=== PATIENT | female | born 1930 | race Caucasian/White ===

== ENCOUNTER 2017-07-24 10:13 | Day surgery (SDC) | payer OTHER, MEDICARE ==
[2017-07-24] MEDS ORDERED: FLUMAZENIL 0.5 MG/5 ML MDV IVP ONE (10:30)
[2017-07-24] MEDS ORDERED: fentaNYL 100 MCG/2 ML INJ ONE (10:30)
[2017-07-24] MEDS ORDERED: NALOXONE HCL 0.4 MG/ML INJ ONE (10:30)
[2017-07-24] MEDS ORDERED: MIDAZOLAM 2 MG/2 ML VIAL ONE (10:30)
[2017-07-24] MEDS ORDERED: MEPERIDINE 25 MG/ML SYR IVP PRN (10:35)
[2017-07-24] MEDS ORDERED: HEPARIN 10,000 UNIT/10 ML MDV (1,000 UNIT/ML) IVP PRN (10:35)
[2017-07-24] MEDS ORDERED: NALOXONE HCL 0.4 MG/ML INJ IVP PRN (10:35)
[2017-07-24] MEDS ORDERED: fentaNYL 100 MCG/2 ML INJ IVP PRN (10:35)
[2017-07-24] MEDS ORDERED: ALTEPLASE 2 MG VIAL IVP PRN (10:35)
[2017-07-24] MEDS ORDERED: PROTAMINE SULFATE 50 MG/5 ML VIAL IVP PRN (10:35)
[2017-07-24] MEDS ORDERED: MIDAZOLAM 2 MG/2 ML VIAL IVP PRN (10:35)
[2017-07-24] MEDS ORDERED: GLUCAGON HCL 1 MG VIAL IVP PRN (10:35)
[2017-07-24] MEDS ORDERED: FLUMAZENIL 0.5 MG/5 ML MDV IVP PRN (10:35)
[2017-07-24] MEDS ORDERED: NS 1,000 ML IV SCH (10:45)
[2017-07-24 11:06] LABS: INR 0.91 (0.83-1.16); PROTIME(PATIENT) 12.5 SEC (12.0-15.0)
--- NOTE | 2017-07-24 11:31 | PDRADPRE ---
Radiology History & Physical Indication for procedure: lung nodule/mass, cancer Significant medical history: lung disease Surgical history: Lumpectomy for breast cancer Home medications: Aspirin [Aspirin 81mg (*)] 07/23/17 [Last Taken 07/20/17] Furosemide [Lasix 40 MG (*)] 40 mg PO DAILY 07/23/17 [Last Taken 07/23/17] Allergies/Adverse Reactions: No Known Allergies Allergy (Verified 07/23/17 14:51) Mental status: A&Ox3 Heart exam: regular rate and rhythm Lungs exam: clear to auscultation Mallampati Score: Class 1
--- NOTE | 2017-07-24 11:32 | PDPROPOC ---
Sedation Plan of Care Sedation Plan of Care: vital signs stable, mental status noted, patient educated of risks, benefits, alternatives, patient can tolerate sedation ASA Classification: ASA 2 Planned drugs: fentanyl, midazolam Mallampati Score: Class 1 Mallampati Reference Image: Patient passed 3-3-2 rule?: Yes
[2017-07-24 15:52] VITALS: BP 164/84
--- NOTE | 2017-07-24 16:09 | PDRADPN ---
Radiology Procedure Note Date of Procedure: 07/24/17 Radiologist: John Carbajal Anesthesia: IV Sedation, Local (Specify) (Lidocaine) Inf/Abcess present in the surg proc area at time of surgery?: No Depth: Organ Space (Lingula mass biopsy) EBL: Minimal Complications: None Specimen(s): 20 guage core biopsies x 4
== END 2017-07-24 16:20 | disposition home or self-care (01) ==
LOC: EDBD 10:13 → FIMAGING 10:13
PROVIDERS: ATTEND Internal Medicine Critical Care Medicine
PROC: 0BBH3ZX Excision of Lung Lingula, Percutaneous Approach, Diagnostic (ICD-10-PCS; principal; 2017-07-24)
DX: R91.1 Solitary pulmonary nodule (principal); J44.9 Chronic obstructive pulmonary disease, unspecified; R60.9 Edema, unspecified; I27.20 Pulmonary hypertension, unspecified; F17.210 Nicotine dependence, cigarettes, uncomplicated; I48.91 Unspecified atrial fibrillation; Z79.82 Long term (current) use of aspirin; Z85.3 Personal history of malignant neoplasm of breast
CPT/HCPCS: 88184-90; 88185-91; J2250; J2310; J3010

== ENCOUNTER → 2017-08-12 | Outpatient (CLI) | payer OTHER, MEDICARE ==
[~2017-08-12] MED LIST: GADOBUTROL 10 ML VIAL IVP ONE
== END ==
LOC: FIMAGING 07:08
PROVIDERS: ATTEND Internal Medicine Hematology & Oncology
DX: C50.919 Malignant neoplasm of unspecified site of unspecified female breast (principal); G31.9 Degenerative disease of nervous system, unspecified; R90.82 White matter disease, unspecified
CPT/HCPCS: 70553; A9585

== ENCOUNTER 2018-02-18 16:14 | Emergency (ER) | payer OTHER, MEDICARE ==
[2018-02-18 17:09] LABS: PLATELET COUNT 434 10^3/uL (150-400)
--- NOTE | 2018-02-18 17:11 | EDPHY ---
H & P Stated Complaint: irregular tachycardia Time Seen by Provider: 02/18/18 16:46 HPI/ROS: CHIEF COMPLAINT: Tachycardia after radiation treatment HISTORY OF PRESENT ILLNESS: The patient presents to the ED for evaluation of tachycardia that occurred after receiving radiation treatment earlier today. The patient is currently being treated for metastatic cancer to her lung. The patient reportedly had a heart rate in the 150s. She was not aware that this tachycardia was occurring. The patient denies any acute pleuritic chest pain. She does report fatigue and chronic dyspnea. She is not anticoagulated. She denies any fever, cough or congestion. The patient denies additional acute complaints. REVIEW OF SYSTEMS: A comprehensive 10 point review of systems is otherwise negative aside from elements mentioned in the history of present illness. Source: Patient, Family - Personal History Current Tetanus/Diphtheria Vaccine: Unsure Current Tetanus Diphtheria and Acellular Pertussis (TDAP): Unsure - Medical/Surgical History Hx Asthma: No Hx Chronic Respiratory Disease: Yes Hx Diabetes: No Hx Cardiac Disease: No Hx Renal Disease: No Hx Cirrhosis: No Hx Alcoholism: No Hx HIV/AIDS: No Hx Splenectomy or Spleen Trauma: No Other PMH: Breast CA mets in lung, double mastectomy, - Social History Smoking Status: Heavy smoker - Physical Exam Exam: General Appearance: Alert, no distress Eyes: Pupils equal and round no pallor or injection ENT, Mouth: Mucous membranes moist Respiratory: There are no retractions, lungs are clear to auscultation Cardiovascular: Regular rate and rhythm Gastrointestinal: Abdomen is soft and nontender, no masses, bowel sounds normal Neurological: A&O, normal motor function, normal sensory exam, normal cranial nerves Skin: Warm and dry, no rashes Musculoskeletal: Neck is supple nontender Extremities: symmetrical, full range of motion Psychiatric: Patient is oriented X 3, there is no agitation Constitutional: Initial Vital Signs Temperature (C) 37.1 C 02/18/18 16:22 Heart Rate 140 H 02/18/18 16:22 Respiratory Rate 20 02/18/18 16:22 Blood Pressure 138/85 H 02/18/18 16:22 O2 Sat (%) 96 02/18/18 16:22 O2 Delivery Mode Room Air O2 (L/minute) 2 Allergies/Adverse Reactions: No Known Allergies Allergy (Verified 02/18/18 16:21) Home Medications: Medication Instructions Recorded Aspirin 11/08/18 Medical Decision Making - Diagnostics EKG Interpretation: EKG: Complete interpretation has been separately recorded in the [employer] cell [employer] archive. Summary impression: Sinus rhythm, rate 85 Imaging Results: CT pulmonary angiogram: Extensive metastatic disease noted, no evidence of a pulmonary embolism. ED Course/Re-evaluation: The patient presents to the ED for evaluation of tachycardia observed after receiving radiation therapy today. She reportedly had heart rate up in the 150 range. No EKG was performed. She arrives to the emergency department today in a sinus rhythm. The patient does have a history of fairly aggressive metastatic breast cancer. Given the patient's history of metastatic disease, tachycardia and chronic dyspnea she was taken for CT pulmonary angiogram which does demonstrate fairly extensive metastatic disease however demonstrates no evidence of a PE or dissection. The patient was monitored throughout her stay in the emergency department without evidence of an recurrent arrhythmia. At this point time I do feel the patient can be discharged home and follow up with her primary care provider. She is instructed to return to the ED for recurrent palpitations, chest pain, shortness of breath or other concerns. Differential Diagnosis: Differential diagnosis considered includes SVT, atrial fibrillation, pulmonary embolism, dehydration, metabolic derangement - Data Points Laboratory Results: Laboratory Results 02/18/18 16:55 02/18/18 16:55 02/18/18 02/18/18 02/18/18 17:51 16:58 16:55 WBC RBC Hgb POC Hgb 11.2 gm/dL L gm/dL (12.6-16.3) Hct POC Hct 33 % L % (38-47) MCV MCH MCHC RDW Plt Count MPV Neut % (Auto) Lymph % (Auto) Custer % (Auto) Eos % (Auto) Baso % (Auto) Nucleat RBC Rel Count Absolute Neuts (auto) Absolute Lymphs (auto) Absolute Monos (auto) Absolute Eos (auto) Absolute Basos (auto) Absolute Nucleated RBC Immature Gran % Immature Gran # PT INR APTT POC Sodium 133 mEq/L L mEq/L (135-145) Sodium TNP POC Potassium 4.0 mEq/L mEq/L (3.3-5.0) Potassium TNP POC Chloride 95 mEq/L L mEq/L (97-110) Chloride TNP Carbon Dioxide TNP Anion Gap TNP POC BUN 20 mg/dL mg/dL (7-23) BUN TNP Creatinine TNP POC Creatinine 0.5 mg/dL L mg/dL (0.6-1.0) Estimated GFR TNP Glucose TNP POC Glucose 111 mg/dL H mg/dL (70-100) Calcium TNP Total Bilirubin TNP Conjugated Bilirubin TNP Unconjugated Bilirubin TNP AST TNP ALT TNP Alkaline Phosphatase TNP POC Troponin I 0.01 ng/mL ng/mL (0.00-0.08) Total Protein TNP Albumin TNP Lipase TNP 02/18/18 02/18/18 16:55 16:55 WBC 11.49 10^3/uL H 10^3/uL (3.80-9.50) RBC 3.14 10^6/uL L 10^6/uL (4.18-5.33) Hgb 10.1 g/dL L g/dL (12.6-16.3) POC Hgb Hct 30.3 % L % (38.0-47.0) POC Hct MCV 96.5 fL fL (81.5-99.8) MCH 32.2 pg pg (27.9-34.1) MCHC 33.3 g/dL g/dL (32.4-36.7) RDW 16.2 % H % (11.5-15.2) Plt Count 434 10^3/uL H 10^3/uL (150-400) MPV 8.5 fL L fL (8.7-11.7) Neut % (Auto) 73.0 % % (39.3-74.2) Lymph % (Auto) 17.1 % % (15.0-45.0) Custer % (Auto) 7.7 % % (4.5-13.0) Eos % (Auto) 1.1 % % (0.6-7.6) Baso % (Auto) 0.4 % % (0.3-1.7) Nucleat RBC Rel Count 0.0 % % (0.0-0.2) Absolute Neuts (auto) 8.38 10^3/uL H 10^3/uL (1.70-6.50) Absolute Lymphs (auto) 1.96 10^3/uL 10^3/uL (1.00-3.00) Absolute Monos (auto) 0.89 10^3/uL H 10^3/uL (0.30-0.80) Absolute Eos (auto) 0.13 10^3/uL 10^3/uL (0.03-0.40) Absolute Basos (auto) 0.05 10^3/uL 10^3/uL (0.02-0.10) Absolute Nucleated RBC 0.00 10^3/uL 10^3/uL (0-0.01) Immature Gran % 0.7 % % (0.0-1.1) Immature Gran # 0.08 10^3/uL 10^3/uL (0.00-0.10) PT 14.1 SEC SEC (12.0-15.0) INR 1.07 (0.83-1.16) APTT 32.6 SEC SEC (23.0-38.0) POC Sodium Sodium POC Potassium Potassium POC Chloride Chloride Carbon Dioxide Anion Gap POC BUN BUN Creatinine POC Creatinine Estimated GFR Glucose POC Glucose Calcium Total Bilirubin Conjugated Bilirubin Unconjugated Bilirubin AST ALT Alkaline Phosphatase POC Troponin I Total Protein Albumin Lipase Point of Care Test Results: Chemistry 02/18/18 02/18/18 17:51 16:58 POC Sodium 133 mEq/L L mEq/L (135-145) POC Potassium 4.0 mEq/L mEq/L (3.3-5.0) POC Chloride 95 mEq/L L mEq/L (97-110) POC BUN 20 mg/dL mg/dL (7-23) POC Creatinine 0.5 mg/dL L mg/dL (0.6-1.0) POC Glucose 111 mg/dL H mg/dL (70-100) POC Troponin I 0.01 ng/mL ng/mL (0.00-0.08) ISTAT H&H 02/18/18 17:51 POC Hgb 11.2 gm/dL L gm/dL (12.6-16.3) POC Hct 33 % L % (38-47) Departure - Departure Disposition: Home, Routine, Self-Care Clinical Impression: Tachycardia Condition: Good Instructions: Heart Palpitations (ED) Additional Instructions: 1. Return to the ED for any recurrent palpitations, chest pain or acute shortness of breath. 2. Please follow-up with your primary care provider as scheduled. Referrals: MADIHA SAUNDERS [Primary Care Provider] - As per Instructions
[2018-02-18 17:53] LABS: INR 1.07 (0.83-1.16); PROTIME(PATIENT) 14.1 SEC (12.0-15.0)
[2018-02-18] MEDS ORDERED: IOPAMIDOL (ISOVUE 370) 100 ML BTL IV ONE (17:56)
[2018-02-18 18:42] VITALS: BP 135/66
--- NOTE | 2018-02-18 23:01 | CPEKG ---
Test Reason : OPEN Blood Pressure : / mmHG Vent. Rate : 085 BPM Atrial Rate : 086 BPM P-R Int : 140 ms QRS Dur : 087 ms QT Int : 348 ms P-R-T Axes : 053 042 057 degrees QTc Int : 414 ms Sinus rhythm Probable left atrial enlargement Confirmed by Regan Palma ([id number]) on 02/18/2018 11:01:14 PM Referred By: Confirmed By:Regan Palma
== END 2018-02-18 19:01 | disposition home or self-care (01) ==
DX: R00.0 Tachycardia, unspecified (principal); F17.200 Nicotine dependence, unspecified, uncomplicated
CPT/HCPCS: 71275; 93005; 99285; Q9967; 82435-PO; 82565-PO; 82947-PO; 84132-PO; 84295-PO; 84484-PO; 84520-PO; 85014-PO

== ENCOUNTER 2018-03-14 11:58 | Inpatient (IN) | payer OTHER, MEDICARE ==
--- NOTE | 2018-03-14 12:18 | EDPHY ---
H & P Time Seen by Provider: 03/14/18 12:18 HPI/ROS: CHIEF COMPLAINT: Can't eat or drink HISTORY OF PRESENT ILLNESS: History of breast cancer, discharged end of February with dysphagia and a swallow study negative for aspiration. Thought likely due to a mediastinal lymphadenopathy or x-ray therapy. Can swallow anything over the past 2 days. Not liquids or food. She has a chronic cough which is unchanged over at least the last year, is not short of breath, no fever or chest pain. No abdominal pain or vomiting REVIEW OF SYSTEMS: Eye: no change in vision ENT: no sore throat Cardiac: no chest pain or syncope Pulmonary: HPI Abdomen: HPI Musculoskeletal: Bilateral lower extremity edema which is improved, over the past 2 weeks Skin: no rash Neuro: no headache Constitutional: no fever : no urinary symptoms A comprehensive 10 point review of systems is otherwise negative aside from elements mentioned in the history of present illness. PAST MEDICAL HISTORY: Breast cancer, atrial fibrillation, COPD Social history: Here with family, both daughters General Appearance: Alert and conversant, cooperative. Eyes: No scleral icterus. ENT, Mouth: Dry mucous membranes. Respiratory: Normal respiratory effort, breath sounds equal, lungs are clear to auscultation. Speaks in full sentences. Cardiovascular: Regular rate and rhythm. Gastrointestinal: Abdomen is soft and non tender. Neurological: Alert, face symmetric, normal motor and sensory in extremities. Skin: Warm and dry, no rashes. Musculoskeletal: Bilateral 2+ peripheral edema without tenderness. Psychiatric: Not agitated. Emergency Department course/MDM: Discussed with Shay Marshall 1253. Patient will be admitted for dysphasia and clinical dehydration with inability to swallow, will discuss with her oncologist and they can consult regarding options for the patient. 1303: Discussed with Luis Angel, [facility] will consult. The tachycardia noted likely due to dehydration. Noted also to be mildly hypoxemic, although she does have a history of COPD, typically wears oxygen at home, does not have respiratory complaints, her cough is not new. Do not think acute aspiration or pneumonia is likely. Smoking Status: Heavy smoker Constitutional: Initial Vital Signs Temperature (C) 36.9 C 03/14/18 12:10 Heart Rate 125 H 03/14/18 12:10 Respiratory Rate 16 03/14/18 12:10 Blood Pressure 96/83 H 03/14/18 12:10 O2 Sat (%) 85 L 03/14/18 12:10 Allergies/Adverse Reactions: No Known Allergies Allergy (Verified 03/06/18 12:11) Home Medications: Medication Instructions Recorded Metoprolol Tartrate [Lopressor 25 12.5 mg PO BID #60 tab 03/08/18 mg (*)] Herbals/Supplements -Info Only 1 ea PO DAILY 03/14/18 Medical Decision Making Differential Diagnosis: Differential considered including but not limited to esophageal inflammation, mechanical obstruction, reflux, impacted foreign body - Data Points Laboratory Results: Laboratory Results 03/14/18 12:34 03/14/18 12:34 03/14/18 03/14/18 12:34 12:34 WBC 9.88 10^3/uL H 10^3/uL (3.80-9.50) RBC 3.41 10^6/uL L 10^6/uL (4.18-5.33) Hgb 10.6 g/dL L g/dL (12.6-16.3) Hct 31.9 % L % (38.0-47.0) MCV 93.5 fL fL (81.5-99.8) MCH 31.1 pg pg (27.9-34.1) MCHC 33.2 g/dL g/dL (32.4-36.7) RDW 14.6 % % (11.5-15.2) Plt Count 406 10^3/uL H 10^3/uL (150-400) MPV 8.8 fL fL (8.7-11.7) Neut % (Auto) 80.1 % H % (39.3-74.2) Lymph % (Auto) 12.8 % L % (15.0-45.0) Smith % (Auto) 6.3 % % (4.5-13.0) Eos % (Auto) 0.1 % L % (0.6-7.6) Baso % (Auto) 0.4 % % (0.3-1.7) Nucleat RBC Rel Count 0.0 % % (0.0-0.2) Absolute Neuts (auto) 7.92 10^3/uL H 10^3/uL (1.70-6.50) Absolute Lymphs (auto) 1.26 10^3/uL 10^3/uL (1.00-3.00) Absolute Monos (auto) 0.62 10^3/uL 10^3/uL (0.30-0.80) Absolute Eos (auto) 0.01 10^3/uL L 10^3/uL (0.03-0.40) Absolute Basos (auto) 0.04 10^3/uL 10^3/uL (0.02-0.10) Absolute Nucleated RBC 0.00 10^3/uL 10^3/uL (0-0.01) Immature Gran % 0.3 % % (0.0-1.1) Immature Gran # 0.03 10^3/uL 10^3/uL (0.00-0.10) Sodium 133 mEq/L L mEq/L (135-145) Potassium 3.9 mEq/L mEq/L (3.3-5.0) Chloride 97 mEq/L mEq/L (97-110) Carbon Dioxide 27 mEq/l mEq/l (22-31) Anion Gap 9 mEq/L mEq/L (6-14) BUN 13 mg/dL mg/dL (7-23) Creatinine 0.5 mg/dL L mg/dL (0.6-1.0) Estimated GFR > 60 Glucose 99 mg/dL mg/dL (70-100) Calcium 9.0 mg/dL mg/dL (8.5-10.4) Medications Given: Discontinued Medications Sodium Chloride (Ns) 1,000 mls @ 0 mls/hr IV ONCE ONE; Wide Open PRN Reason: Protocol Stop: 03/14/18 12:39 Last Admin: 03/14/18 13:01 Dose: 1,000 mls Departure - Departure Disposition: [facility] Inpatient Acute Clinical Impression: Dehydration Dysphagia Qualifiers: Dysphagia type: unspecified Qualified Code(s): R13.10 - Dysphagia, unspecified Condition: Good
[2018-03-14] MEDS ORDERED: NS 1,000 ML IV ONE (12:38)
[2018-03-14 12:58] LABS: PLATELET COUNT 406 10^3/uL (150-400)
[2018-03-14] MEDS ORDERED: ACETAMINOPHEN 325 MG TAB PO PRN (15:12)
[2018-03-14] MEDS ORDERED: ONDANSETRON 4 MG/2 ML VIAL IVP PRN (15:12)
[2018-03-14] MEDS ORDERED: ONDANSETRON DISINTEGRATING 4 MG TAB PO PRN (15:12)
[2018-03-14] MEDS ORDERED: D5W 1/2 NS 1,000 ML IV SCH (15:15)
[2018-03-14] MEDS ORDERED: NS 1,000 ML IV SCH (15:30)
[2018-03-14] MEDS ORDERED: IOPAMIDOL (ISOVUE-300) 100 ML BTL ONE (16:39)
[2018-03-14] MEDS: IBUPROFEN SUSP 100 MG/5 ML UDCUP PO PRN (18:49)
--- NOTE | 2018-03-14 19:07 | GCON ---
REASON FOR CONSULTATION: Metastatic breast cancer with inability to swallow. HISTORY OF PRESENT ILLNESS: Ca Jarquin is a very pleasant 88-year-old female with history of metastatic breast cancer who is admitted today with increasing difficulty swallowing. The patient's oncology history dates back many years ago when she was diagnosed with bilateral breast cancer, undergoing bilateral mastectomies. She was found to be BRCA1 positive. In the spring, she developed significant mediastinal adenopathy and multiple lung masses. Biopsy was consistent with metastatic breast cancer. ER/NV and HER-2/ vibha were negative. The patient was started on Xeloda in August and continued on Xeloda until February when she was found to have progressive disease. CT scan of the chest in early February showed an increasing size of multiple bilateral lung masses, the largest of which measured 6 x 4.5 cm on the right and on the left 4.4 x 3.5 cm. PET scan showed confluent malignancy in the medial left upper lobe, extending to the upper mediastinum and encasing the left subclavian artery. She underwent a course of mediastinal radiation over a period of 6 weeks and finished that approximately 2 weeks ago. While the patient has been having difficulty swallowing for several months, in the last 3-4 days she has not been able to take anything orally. She was recently in the hospital and discharged approximately 4 days ago. She was admitted for dysphagia. Speech Therapy saw her and there was no evidence of obvious aspiration or Zenker's diverticula. Currently she denies any pain in her throat. She has difficulty with both liquids and solids, but she is able to manage her saliva. She has had no fevers or chills. She denies any increasing shortness of breath. PAST MEDICAL HISTORY: 1. Metastatic breast cancer, triple negative, BRCA1 positive. 2. COPD. 3. History of atrial fibrillation, not anticoagulated. FAMILY HISTORY: BRCA1 mutation in the family. SOCIAL HISTORY: She continues to smoke. She does not drink. She has a supportive family. ALLERGIES: None known. REVIEW OF SYSTEMS: 10-point review of systems is negative other than in HPI. PHYSICAL EXAMINATION: GENERAL: She is an alert, comfortable-appearing, elderly female in no distress. VITALS: Blood pressure 134/60, respirations 18 , O2 sat 86% on room air. HEENT: Pupils are equal. Sclerae anicteric. Oropharynx with questionable thrush on the tongue. No obvious thrush on the mucosal membranes. HEART: Irregular. LUNGS: Clear. ABDOMEN: Soft, nontender. EXTREMITIES: No edema. LABORATORY DATA: White count 9.9, hematocrit 31.9, platelets 406. Basic metabolic panel unremarkable. CT scan of the neck has been performed, but has not been read yet. IMPRESSION: This is an 88-year-old female, BRCA1 carrier, who has a remote history of breast cancer dating back to 1994, diagnosed with locally extensive mediastinal recurrence in the spring. She was initially treated with Xeloda and more recently, due to progressive disease, has undergone a course of radiation to the superior mediastinum. She now presents with inability essentially to swallow solids or liquids. Currently the patient is being hydrated. She has had a neck CT. Further workup will be performed as needed. She may end up needing an EGD. We will contact Speech Pathology to reevaluate swallowing. She does have some white plaques on her tongue. However, I am not convinced this is thrush. With that said, however, given the difficulty with swallowing I would recommend fluconazole. We can give it intravenously for now given her difficulty with pills. We will continue to follow along with you. She will need DVT prophylaxis. /[id number]/MODL MTDD
[2018-03-14] MEDS: METOPROLOL TARTRATE 25 MG TAB PO SCH (21:37)
[2018-03-15] MEDS: METOPROLOL TARTRATE 25 MG TAB PO SCH (09:14)
[2018-03-15] MEDS: ENOXAPARIN 40 MG/0.4 ML SYR SC SCH (09:19)
--- NOTE | 2018-03-15 12:47 | ASMTCMCOM ---
CM Note CM Note Notes: Patient reviewed in am rounds for plan of care. Patient just discharged the end of February with c/o of dysphagia She went home with [facility] through [facility]. She presents to the ED with c/o extreme dysphagia and dehydration. History of breast cancer. Patient is a current smoker. Questionable mass on CT. ENT consulted to attempt direct visualization. CM to follow for needs, Plan: TBD Date Signed: 03/15/2018 12:47 PM Electronically Signed By:Stefania Hector RN
--- NOTE | 2018-03-15 12:58 | HOSPPROG ---
Hospitalist Progress Note Assessment/Plan: 1. Dysphagia - Presenting with difficulty swallowing liquids and solids, acutely worsened over the weekend - Recently admitted for similar complaint, w/u negative, discussed with Speech Therapy this morning who report imaging at that time did not show obstruction - Recent mediastinal radiation - CT Neck performed which showed possible R tongue base mass although obscured by dental hardware, radiology recommended - Consulted ENT this AM for further evaluation and possible scope to evaluate CT findings - Pending ENT consult, consider consulting GI for further evaluation, possible EGD - Started D5 1/2 NS while NPO - Some white oral lesions, will start Fluconazole IV today per oncology recommendations 2. Metastatic Breast Cancer - Oncology consulted and following 3. A Fib - Continue home b-flor Dispo: Pending clinical course Subjective: Patient reports difficulty swallowing saliva this morning Objective: Vital Signs Temp Pulse Resp BP Pulse Ox 36.4 C 66 20 115/55 L 92 03/15/18 12:17 03/15/18 12:17 03/15/18 12:17 03/15/18 12:17 03/15/18 12:17 Laboratory Results 03/15/18 04:46 03/14/18 03/15/18 03/16/18 05:59 05:59 05:59 Intake Total 2039 Balance 2039 - Physical Exam Constitutional: chronically ill appearing Eyes: PERRL Ears, Nose, Mouth, Throat: moist mucous membranes, oral thrush Cardiovascular: regular rate and rhythym Respiratory: no respiratory distress Gastrointestinal: soft, non-tender abdomen Skin: warm Neurologic: AAOx3 Psychiatric: interacting appropriately ICD10 Worksheet Patient Problems: Problems Problem Status Onset Dehydration Acute Dysphagia Acute Constipation Acute Failure to thrive in adult Acute
[2018-03-15] MEDS: IBUPROFEN SUSP 100 MG/5 ML UDCUP PO PRN (13:28)
[2018-03-15] MEDS: D5W 1/2 NS 1,000 ML IV SCH (13:31)
--- NOTE | 2018-03-15 13:38 | GHP ---
DATE OF ADMISSION: 03/14/2018 CHIEF COMPLAINT: Inability to swallow, dehydration. HISTORY OF PRESENT ILLNESS: The patient is a very pleasant 88-year-old with a history significant fo r metastatic breast cancer. She has had issues with swallowing difficulty for several weeks. She wa s recently admitted at the end of February for similar complaints, at which time it was thought she w as constipated, and she had an enema and was doing better at the time of discharge. However, since b eing home for the last 5 days, she has continued to have difficulty swallowing. She primarily compla ins of swallowing issues right at her cricoid area where she feels like food and sputum get stuck rig ht at the base of her throat, and she is unable to pass it down. This is the same for liquids and so lids. It got to a point where she was having difficulty eating and drinking and came in today for fu rther evaluation and worries about dehydration. She denies fevers or chills. During her recent admi ssion, she had a speech evaluation, which did not show any obvious dysphagia or aspiration risk. She denies any nausea, although she just coughs up what she ate. She has no abdominal pain, no urinary or bowel changes. She does have a history of metastatic breast cancer and was initially started on X eloda, but that was discontinued due to inability to tolerate the medication. She eventually underwe nt radiation therapy to her mediastinum, which was finished about 2 weeks ago. The difficulty swallo wing has been going on for several months, but she feels like the last few days it has gotten signifi cantly worse. REVIEW OF SYSTEMS: A 10-point review of systems was done and is negative, except as stated in HPI. PAST MEDICAL HISTORY: 1. Metastatic breast cancer, triple negative. 2. COPD. 3. History of atrial fibrillation, currently not anticoagulated. FAMILY HISTORY: BRCA1 mutation. SOCIAL HISTORY: She continues to smoke but is hoping to cut down and "does not inhale," . She has a very supportive family. ALLERGIES: No known drug allergies. MEDICATIONS: Please see med reconciliation form. PHYSICAL EXAM: VITAL SIGNS: On admission, she was afebrile, heart rate 125, blood pressure 96/83, r espirations 16. She was 85% on room air. She did receive some fluids, and this improved her blood p ressure to 128/64. GENERAL: She is alert and oriented. Speech is fluent. HEENT: Pupils are equal . Mucous membranes are slightly dry. Oropharynx is clear. She does look like she has some slight s putum pooling at the base of her tongue. It is difficult to visualize. NECK: Otherwise supple, wit hout masses or adenopathy. HEART: Regular, with a systolic murmur. LUNGS: Clear bilaterally. ABD OMEN: Soft. No distention or guarding. EXTREMITIES: No significant edema. MUSCULOSKELETAL: No j oint deformities or effusion. SKIN: Intact. NEUROLOGIC: She moves all 4 extremities. She is aler t, and speech is fluent. PSYCH: She is appropriate. Normal mood. LABORATORY DATA: On admission shows a white count of 9.88, hemoglobin 10.6, platelet count of 46. C hemistry shows sodium 133. Electrolytes are otherwise normal, with a normal renal function. ASSESSMENT AND PLAN: 1. This 88-year-old presents with difficulty swallowing solids and liquids, with poor p.o. intake ov er the last several days, primarily at the base of her neck. History is significant for breast cance r and recent radiation therapy. Plan: Admit to the hospital for supportive care, IV fluids. We angie l also further evaluate this with a neck CT to try and visualize the area that she has some discomfor t. She did have a recent speech evaluation, which did not show any Zenker's diverticulum or any obvi ous issues with aspiration. Further recommendations will depend upon the patient's clinical course. I did talk briefly with Dr. Pepe Baez, who would be willing to do a laryngoscope if there are any abnormalities noted on the neck CT. She did have a recent CT angiogram of her chest done within the month that was unremarkable in that area. 2. Atrial fibrillation. Patient has had paroxysmal atrial fibrillation. She is on metoprolol for r ate control. She is not currently on anticoagulation due to her poor functional status. This can be discussed further by her primary care providers. 3. Deep vein thrombosis prophylaxis, add low-molecular weight heparin. /[id number]/MODL
--- NOTE | 2018-03-15 13:40 | PDMN ---
Medical Necessity Medical necessity: [facility] Disease: 88 yo presents w/ dysphagia with difficulty swallowing liquids and solids, acutely worsened over the weekend. CT Neck performed which showed possible R tongue base mass. Oncology and ENT consults, swallow eval ordered. Pt NPO w/ IVF. Pt hypoxic on RA, O2 started to maintain sats>90%. IV fluconazole started for white oral lesions as pt can't swallow. Anticipate>2MN for ongoing dx, monitoring and tx of the above. Hx metastatic breast ca w/ recent mediastinal radiation.
[2018-03-15] MEDS: FLUCONAZOLE/NaCl 100 ML IV SCH (13:44)
[2018-03-15] MEDS: METOPROLOL TARTRATE 5 MG/5 ML INJ IVP SCH (18:07)
--- NOTE | 2018-03-15 19:48 | SOAPPROG ---
SOAP Progress Note Assessment/Plan: Assessment/Plan: Patient is an 88 year old female with history of metastatic breast cancer, ER/[place] /HER2 negative, treated most recently with mediastinal radiation admitted for oropharyngeal dysphagia. #Oropharyngeal dysphagia Solids and liquids. Expect related to radiation to chest somehow, perhaps esophageal stricture. CT neck with possible base of the tongue lesion but seems symptoms wouldn't fit entirely but agree with direct visualization -Agree with speech eval -Agree with ENT visualization possible base of tongue lesion -Consider EGD vs cookie swallow with esophagram #Metastatic breast cancer Status post Xeloda and thoracic radiation. No acute issues currently. 03/15/18 19:56 03/15/18 20:03 Subjective: patient still with difficulty swallowing, has no problem with her secretions. No other symptoms. Objective: Vital Signs Temp Pulse Resp BP Pulse Ox 36.3 C 107 H 20 112/54 L 90 L 03/15/18 15:40 03/15/18 15:40 03/15/18 15:40 03/15/18 15:40 03/15/18 15:48 Laboratory Results 03/15/18 04:46 03/14/18 03/15/18 03/16/18 05:59 05:59 05:59 Intake Total 2039 Balance 2039 Gen: no acute distress, non toxic HEENT: PERRL, no icterus or pallor, no oral lesions CV: RRR without rubs thrills and gallops Chest: CTA in bilateral posterior lungs Abdomen: soft, nontender, no HSM Extremities: warm and well perfused no edema ICD10 Worksheet Patient Problems: Problems Problem Status Onset Dehydration Acute Dysphagia Acute Constipation Acute Failure to thrive in adult Acute
[2018-03-16] MEDS: METOPROLOL TARTRATE 5 MG/5 ML INJ IVP SCH ×5 (01:08→23:56)
[2018-03-16 04:59] LABS: PLATELET COUNT 395 10^3/uL (150-400)
[2018-03-16] MEDS: D5W 1/2 NS 1,000 ML IV SCH (05:08)
--- NOTE | 2018-03-16 06:54 | PDCONSULT ---
Clay Roaster Note: Please see dictation for full report. Patient examined 03/15/18. H&P - Dysphagia, globus sensation EXAM - GENERAL - Speech with mild hot potato voice or dysarthria - OP/OC - Clear - FLEXIBLE LARYNGOSCOPY - Unremarkable. Equivocal tongue base hypertrophy essentially within normal limits. No focal mass of lesion. Glottic structures normal with appropriate movement. ASSESSMENT/RECOMMENDATIONS - Dysphagia, globus - No obvious anatomic obstruction or mass on CT or laryngoscopy - Recommend repeat barium swallow, if tolerated. If not, upper endoscopy vs MRI recommended to further evaluate anatomy as CT imaging affected by dental fillings. Could retake CT off plane in attempt to obviate issue with fillings. Consider neurologic eval considering mild dysarthria.
[2018-03-16] MEDS: ENOXAPARIN 40 MG/0.4 ML SYR SC SCH (08:50)
[2018-03-16] MEDS: FLUCONAZOLE/NaCl 100 ML IV SCH (08:50)
--- NOTE | 2018-03-16 14:27 | HOSPPROG ---
Hospitalist Progress Note Assessment/Plan: Dysphagia - CT raised question of mass at base of tongue, though nothing visualized by ENT. Suspect this is related to recent radiation, ?nerve injury -GI consult for consideration of EGD, to be done in am -cont fluconazole for possible thrush, d/c if no e/o allison on egd Metastatic breast cancer - onc following Atrial fibrillation - rate controlled on BB, not anticoagulated, may re-visit this with outpt provider Diarrhea - one episode, send c diff if recurs DNR Dispo - cont inpt Subjective: Pt doing ok, continues to report diffiulty swallowing, feels like liquids or food comes back up, chokes and coughs. Denies odynophagia. No fevers/chills. Currently NPO. Objective: Vital Signs Temp Pulse Resp BP Pulse Ox 36.3 C 71 27 H 124/57 H 94 03/16/18 12:36 03/16/18 12:36 03/16/18 12:36 03/16/18 12:36 03/16/18 12:36 Laboratory Results 03/16/18 04:40 03/16/18 04:40 03/15/18 03/16/18 03/17/18 05:59 05:59 05:59 Intake Total 2039 900 Balance 2039 900 - Physical Exam Constitutional: no apparent distress Eyes: PERRL Ears, Nose, Mouth, Throat: moist mucous membranes Cardiovascular: regular rate and rhythym Respiratory: no respiratory distress, clear to auscultation Gastrointestinal: normoactive bowel sounds, soft, non-tender abdomen Skin: warm Musculoskeletal: full muscle strength Neurologic: AAOx3 Psychiatric: interacting appropriately ICD10 Worksheet Patient Problems: Problems Problem Status Onset Dehydration Acute Dysphagia Acute Constipation Acute Failure to thrive in adult Acute
--- NOTE | 2018-03-16 15:09 | ASMTCMCOM ---
CM Note CM Note Notes: Patient plan of care reviewed in rounds. Per ENT no mass visualized per laryngoscope. GI to see for possible endoscopic views. Referral to [facility] her [facility] agency per allscripts. Currently NPO per speech therapy. CM to follow for needs. Plan : Home with resumption of services when medically cleared for discharge. Date Signed: 03/16/2018 03:09 PM Electronically Signed By:Stefania Hector RN
--- NOTE | 2018-03-16 15:51 | GCON ---
REFERRING PHYSICIAN: Ellen Matos MD CHIEF COMPLAINT: Dysphagia. HISTORY OF PRESENT ILLNESS: I have been asked to see this very pleasant 88-year-old woman in consult ation by Dr. Matos for dysphagia. The patient has a history of metastatic breast cancer. She has had difficulty swallowing. She had been admitted in February of this year with similar complaints. She apparently has metastatic disease and had cervical adenopathy. She did receive radiation in that area as to help with swallowing. Swallowing actually became worse. She has difficulty swallowing l iquids and solids. She denies any abdominal pain or discomfort. She denies any pain with swallowing . As mentioned, patient has a history of metastatic breast cancer diagnosed with bilateral breast ca ncer. She has had previous bilateral mastectomy. She was BRCA1 positive. In the spring, abner sweeney developed significant mediastinal adenopathy with multiple lung masses. Biopsies were consistent w ith metastatic disease. The patient was started on Xeloda in August and continued until February when s he was found to have progression of disease. CT scan in February showed multiple bilateral lung mass es. The largest being 6 x 4.5 cm in the right and on the left, 4.4 x 3.5 cm. The PET scan showed co nfluent malignancy in the medial left upper lobe extending to the upper mediastinum and encasing the left subclavian artery. She did undergo mediastinal radiation for 6 weeks. She continued problems w ith swallowing and it became somewhat worse. She underwent evaluation by ENT, which was unremarkable . Asked to see patient for further evaluation. PAST MEDICAL HISTORY: Remarkable for metastatic breast cancer, COPD, history of atrial fibrillation, not on anticoagulation. FAMILY HISTORY: BRCA1 mutation in the family. Otherwise, negative as it pertains to chief complaint . SOCIAL HISTORY: She is a smoker, nondrinker. Has a supportive family. ALLERGIES: Has no known drug allergies. MEDICATIONS: Medications at home, include metoprolol, herbs. Medications in the hospital, include e noxaparin, Lopressor, and Zofran. REVIEW OF SYSTEMS: Negative 10 systems, other than mentioned in HPI. PHYSICAL EXAM: VITAL SIGNS: 124/57, heart rate of 71, respiratory rate of 18, 97% saturation on 4 L , 36.3. GENERAL: A very pleasant older woman in no acute distress. HEENT/NECK: Normocephalic, atr aumatic. EOMI. Neck is supple. No cervical adenopathy. No thyromegaly. Mucous membranes moist.. LUNGS: Clear. CARDIAC: Normal S1, S2 without murmur. ABDOMEN: Nontender. No hepatosplenomegaly . EXTREMITIES: Without clubbing, cyanosis, edema. NEURO: Nonfocal. SKIN: Warm, dry, intact. PS YCHIATRIC: Normal affect. Appropriate mood. LABORATORY DATA: Hemoglobin of 9.8, hematocrit 30.4. Serum chemistries: Serum sodium 134, potassiu m 3.4, chloride 106, CO2 25, BUN 11, creatinine 0.4, blood sugar of 114. IMPRESSION: 88-year-old woman with metastatic breast cancer with mediastinal adenopathy and lung met astatic disease. Patient with status post radiation with increasing problems with swallowing. The p atient has been evaluated by Speech Pathology who feels as though she is an aspiration risks. She is currently n.p.o. RECOMMENDATIONS: Proceed with diagnostic endoscopy to evaluate for possible stricture associated wit h recent radiation or tumor compression. We will plan on EGD with anesthesia assistance. N.p.o. aft er midnight. Will hold enoxaparin until after endoscopy. We will follow with you. Thank you for allowing us participate in the care of this patient. /[id number]/MODL
--- NOTE | 2018-03-16 22:23 | SOAPPROG ---
SOAP Progress Note Assessment/Plan: Assessment/Plan: Patient is an 88 year old female with history of metastatic breast cancer, ER/WI /HER2 negative, treated most recently with mediastinal radiation admitted for oropharyngeal dysphagia. #Oropharyngeal dysphagia Solids and liquids. Expect related to radiation to chest somehow, perhaps esophageal stricture. CT neck with possible base of the tongue lesion but normal by direct visualization. She was not deemed safe for PO intake by speech so limited in diagnostic evaluation apart from EGD. -Agree with EGD/GI consult #Metastatic breast cancer Status post Xeloda and thoracic radiation. No acute issues currently. 03/16/18 22:22 Subjective: No change in symptoms, no new symptoms. Still NPO Objective: Vital Signs Temp Pulse Resp BP Pulse Ox 36.8 C 71 20 140/77 H 97 03/16/18 19:38 03/16/18 19:38 03/16/18 19:38 03/16/18 19:38 03/16/18 19:38 Laboratory Results 03/16/18 04:40 03/16/18 04:40 03/15/18 03/16/18 03/17/18 05:59 05:59 05:59 Intake Total 0 900 995 Output Total 100 Balance 0 900 895 Gen: no acute distress, non toxic HEENT: PERRL, no icterus or pallor, no oral lesions CV: RRR without rubs thrills and gallops Chest: CTA in bilateral posterior lungs Abdomen: soft, nontender, no HSM Extremities: warm and well perfused no edema ICD10 Worksheet Patient Problems: Problems Problem Status Onset Dehydration Acute Dysphagia Acute Constipation Acute Failure to thrive in adult Acute
[2018-03-16] MEDS: D5W NS W/ 20 KCl/L 1,000 ML IV SCH (23:58)
[2018-03-17] MEDS: METOPROLOL TARTRATE 5 MG/5 ML INJ IVP SCH ×4 (05:29→23:52)
[2018-03-17] MEDS ORDERED: LR 1,000 ML IV ONE (07:06)
--- NOTE | 2018-03-17 07:13 | PDANEPAE ---
ANE History of Present Illness EGD. ANE Past Medical History - Cardiovascular History Hx Hypertension: No Hx Arrhythmias: Yes Hx Chest Pain: No Hx Coronary Artery / Peripheral Vascular Disease: No Hx CHF / Valvular Disease: No Hx Palpitations: No Cardiovascular History Comment: Atrial fibrillation - Pulmonary History Hx COPD: Yes Hx Asthma/Reactive Airway Disease: No Hx Recent Upper Respiratory Infection: No Hx Oxygen in Use at Home: Yes O2 in Use at Home (L/minute): 2 Hx Sleep Apnea: No Sleep Apnea Screening Result - Last Documented: Negative Pulmonary History Comment: COPD, started on supplemental O2 1 week ago. ankles and feet swelling-lung masses bilaterally - Neurologic History Hx Cerebrovascular Accident: No Hx Seizures: No Hx Dementia: No - Endocrine History Hx Diabetes: No Hypothyroid: No Hyperthyroid: No Obesity: no - Renal History Hx Renal Disorders: No - Liver History Hx Hepatic Disorders: No - Neurological & Psychiatric Hx Hx Neurological and Psychiatric Disorders: No - Cancer History Hx Cancer: Yes Cancer History Comment: breast cancer 1994, 1973, now metastatic - Congenital Disorder History Hx Congenital Disorders: No - GI History Hx Gastrointestinal Disorders: No - Other Health History Other Health History: anemia. loose teeth. cataract surgery - Chronic Pain History Chronic Pain: No - Surgical History Prior Surgeries: total knee L; L and R mastectomies. L knee ORIF ANE Review of Systems Review of Systems: - Exercise capacity METS (RN): 3 METS ANE Patient History - Allergies Allergies/Adverse Reactions: No Known Allergies Allergy (Verified 03/06/18 12:11) - Home Medications Home medications: home medication list seen and reviewed (Metoprolol) Home Medications: Herbals/Supplements -Info Only 1 ea PO DAILY 03/14/18 [Last Taken Unknown] - NPO status NPO Since - Liquids (Date): 03/16/18 NPO Since - Liquids (Time): 11:30 NPO Since - Solids (Date): 03/16/18 NPO Since - Solids (Time): 11:30 - Anes Hx Anes Hx: no prior problems - Smoking Hx Smoking Status: Heavy smoker - Alcohol Use Alcohol Use: None - Family Anes Hx Family Anes Hx: none Family Hx Anesthesia Complications: none ANE Labs/Vital Signs - Labs Result Diagrams: 03/16/18 04:40 03/17/18 04:58 - Vital Signs Blood Pressure: 129/63 Heart Rate: 76 Respiratory Rate: 28 O2 Sat (%): 93 Height: 152.4 cm Weight: 48.534 kg ANE Physical Exam - Airway Neck exam: FROM Mouth exam: poor dentition - Pulmonary Pulmonary: clear to auscultation, reduced air movement - Cardiovascular Cardiovascular: regular rate and rhythym - ASA Status ASA Status: III ANE Anesthesia Plan Anesthesia Plan: GA with mask (benefits/risks/alternatives discussed with patient and her daughter.)
[2018-03-17] MEDS ORDERED: PROPOFOL 200 MG/20 ML VIAL ONE (07:43)
--- NOTE | 2018-03-17 08:18 | GIREPORT ---
[facility] Surgical Services - Endoscopy Department Patient Name: Ca Jarquin Procedure Date: 03/17/2018 6:54 AM Patient Type: Inpatient Attending MD/ ER Physician: Valente Bashir MD Procedure: Upper GI endoscopy Indications: Dysphagia, History of met static breast cancer, pulmonary involvement a nd mediastinal adenopathy, S/P radiation without improvement of symptoms. Providers: Valente Bashir MD Medicines: Propofol per Anesthesia Complications: No immediate complications. Description of Procedure: After obtaining informed consent, the endoscope was passed under direct vision. Throughout the procedure, the patient's blood pressure, pulse, and oxygen saturations were monitored continuously. The Endoscope was intro duced through the mouth, and advanced to the upper third of esophagus. The up per GI endoscopy was accomplished without difficulty. The patient tolerated the procedure well. Findings: One extrinsic stenosis was found 20 cm from the incisors. This stenosis was severe and the stenosis was not traversed. Food was found in the proximal esophagus. Removal of food was accomplis hed. Estimated Blood Loss: Estimated blood loss: none. Post Op Diagnosis: - Extrinsic narrowing of the esophagus c/w external compression from adenopathy/metastatic breast cancer. - Food in the proximal esophagus. Removal was successful. Recommendation: - NPO patient unable to take any PO due to severe proximal esophageal stricture. - Esophageal stricture not amenable to dilation or stenting. No endosco pic treatment options. - Oncology will need to have discussion with family and patient regardi ng further treatment options for breast cancer and whether or not they wou ld like to proceed with gastrostomy tube (either IR placed or surgically p laced) - Thank you for allowing me to participate in the care of your patient. Attending Participation: I personally performed the entire procedure. Valente Bashir MD Valente Bashir MD 03/17/2018 8:17:35 AM This report has been signed electronicallyValente Bashir MD Number of Addenda: 0 Note Initiated On: 03/17/2018 6:54 AM [email or web address]
[2018-03-17] MEDS ORDERED: NALOXONE HCL 0.4 MG/ML INJ IVP PRN (08:23)
--- NOTE | 2018-03-17 08:24 | POSTANESTH ---
Post Anesthetic Evaluation Cardiovascular Status: Similar to Pre-Op Cond Respiratory Status: Similar to Pre-op Cond. Level of Consciousness/Mental Status: Can Participate in Eval Pain Control: Adequate, Prn Tx Ordered Nausea/Vomiting Control: Adequate, Prn Tx Ordered Complications Possibly Related to Anesthesia: None Noted
[2018-03-17] MEDS: FLUCONAZOLE/NaCl 100 ML IV SCH ×2 (09:15→09:17)
--- NOTE | 2018-03-17 11:41 | HOSPPROG ---
Hospitalist Progress Note Assessment/Plan: Dysphagia - sec to stricture caused by external compression from tumor burden / LAD. She'll unfortunately need to remain NPO. Discussed options with family ( 2 daughters, MDPOA) and patient: peg tube with chemo and tube feeds vs hospice. Pt clearly states she does not want further chemo and no more intervention, including no feeding tube. She opts for hospice -[facility] to consult with family today, they wish to bring her home tomorrow -d/c fluconazole -IVF's for now Metastatic breast cancer - onc following, participated in family meeting today -as above, hospice planned Atrial fibrillation - rate controlled on BB, not anticoagulated Diarrhea - one episode, c diff neg DVT PPLX - lovenox DNR Dispo - cont inpt, home on hospice in am. A total of 45 minutes was spent in family meeting regarding medical issues and goals of care. Another 30 minutes spent with pt and family in the afternoon confirming pt's wish for hospice. Subjective: Pt is tired after EGD. She is weak. Remains NPO. No fevers. No vomiting. Objective: Vital Signs Temp Pulse Resp BP Pulse Ox 36.6 C 60 14 137/68 H 95 03/17/18 11:26 03/17/18 11:26 03/17/18 11:26 03/17/18 11:26 03/17/18 11:26 Laboratory Results 03/16/18 04:40 03/17/18 04:58 03/16/18 03/17/18 03/18/18 05:59 05:59 05:59 Intake Total 900 995 Output Total 100 Balance 900 895 - Physical Exam Constitutional: no apparent distress Eyes: PERRL Ears, Nose, Mouth, Throat: moist mucous membranes Cardiovascular: regular rate and rhythym Respiratory: no respiratory distress Gastrointestinal: normoactive bowel sounds, soft, non-tender abdomen Skin: warm Musculoskeletal: generalized weakness Neurologic: AAOx3 Psychiatric: interacting appropriately ICD10 Worksheet Patient Problems: Problems Problem Status Onset Dehydration Acute Dysphagia Acute Constipation Acute Failure to thrive in adult Acute
[2018-03-17] MEDS ORDERED: ACETAMINOPHEN 650 MG SUPP PR PRN (11:46)
[2018-03-17] MEDS: D5W NS W/ 20 KCl/L 1,000 ML IV SCH (14:03)
--- NOTE | 2018-03-17 14:51 | ASMTCMCOM ---
CM Note CM Note Notes: Patient plan of care reviewed with MD. She has a severe stricture from her cancer. She is unable to swallow and does not wish to have a feeding tube, Hospice has been consulted. CM to assist family. Plan: TBD Date Signed: 03/17/2018 02:51 PM Electronically Signed By:Stefania Hector RN
--- NOTE | 2018-03-17 16:32 | ASMTCMCOM ---
CM Note CM Note Notes: Nona Scanlon in to see family and patient. Daughter has POA. Patient wishes to return home with support from hospice. They hope to have everything arranged by am. The would like to dc by 12 noon. CM availble to assist with needs. Plan: Dc home with hospice care. Date Signed: 03/17/2018 04:31 PM Electronically Signed By:Stefania Hector RN
[2018-03-18] MEDS: D5W NS W/ 20 KCl/L 1,000 ML IV SCH
[2018-03-18] MEDS: METOPROLOL TARTRATE 5 MG/5 ML INJ IVP SCH (05:26)
[2018-03-18] MEDS: ENOXAPARIN 40 MG/0.4 ML SYR SC SCH (07:25)
[2018-03-18 07:31] VITALS: BP 151/83
--- NOTE | 2018-03-18 10:05 | PDIAF ---
- Diagnosis Diagnosis: metastatic breast cancer, esophageal stricture 2/2 tumor burden Code Status: Do Not Resuscitate - Medication Management Discharge Medications: electronically signed and located in the Home Medication List. PICC Care - Routine: N/A - Orders Oxygen: 2 LPM prn comfort Diet Recommendation: other (recreational diet, sips of liquids as desired and tolerated) Diet Texture: Ice Chips, Non Oral Meds Additional Instructions: home hospice with [facility] - Follow Up Care Current Providers and Referrals: MADIHA SAUNDERS [Primary Care Provider] - As per Instructions
--- NOTE | 2018-03-18 10:13 | ASMTLACE ---
LACE Length of stay for Answers: 3 days current admission Acuity / Level of Answers: Yes Care: Did the patient have an inpatient admission? Comorbidities - select Answers: Any tumor (including all that apply lymphoma or leukemia) Chronic pulmonary disease Other Notes: AFib # of Emergency department Answers: 3-4 visits in the last 6 months Score: 14 Date Signed: 03/18/2018 10:12 AM Electronically Signed By:Stefania Hector RN
--- NOTE | 2018-03-18 10:22 | ASMTDCNOTE ---
Case Management Discharge Discharge Order Complete? Answers: Yes Patient to Obtain Answers: via Family Medications Transportation Arranged Answers: Family/Friends Agency/Facility Transfer Answers: Yes Report Printed & Faxed to Receiving Agency Family Notified Answers: Yes Discharge Comments Notes: Patient to discharge home with family and [facility] today. Date Signed: 03/18/2018 10:21 AM Electronically Signed By:Stefania Hector RN
--- NOTE | 2018-03-18 12:24 | ASDISCHSUM ---
Discharge Information Plan Status:Hospice-Home Medically Cleared to Leave:03/17/2018 Discharge Date:03/18/2018 11:45 AM CM D/C Disposition:Hospice Home ADT D/C Disposition:Hospice Home Projected Discharge Date:03/18/2018 11:00 AM Transportation at D/C: Discharge Delay Reason: Follow-Up Date:03/18/2018 11:00 AM Discharge Slot: Final Diagnosis: Placement Information Referral Type:*Home Health Care Services Referral ID:[id number] Provider Name: Address 1: Phone Number: Address 2: Fax Number: City: Selection Factors: State: Referral Type:*Hospice Referral ID:[id number] Provider Name:[facility] Address 1:[address] Phone Number: Address 2: Fax Number: [facility]:[place] Selection Factors: State:[place] Patient Contact Information Contact Name:SHARONDA Relationship:Daughter Address:[address] Work Phone: City:[place] Alternate Phone: [facility]/Zip Code:[place] [address] Email: Financial Information Financial Class:Medicare Primary Plan Desc:MEDICARE INPATIENT Primary Plan Number:[id number] Secondary Plan Desc:[employer]/MDR SUPPLEMENT Secondary Plan Number:[id number] Assessment Information LACE LACE Length of stay for Answers: 3 days current admission Acuity / Level of Answers: Yes Care: Did the patient have an inpatient admission? Comorbidities - select Answers: Any tumor (including all that apply lymphoma or leukemia) Chronic pulmonary disease Other Notes: AFib # of Emergency department Answers: 3-4 visits in the last 6 months Score: 14 Date Signed: 03/18/2018 10:12 AM Electronically Signed By:Stefania Hector RN [facility] Progress Note CM Note CM Note Notes: Patient reviewed in am rounds for plan of care. Patient just discharged the end of February with c/o of dysphagia She went home with [facility] through [facility]. She presents to the ED with c/o extreme dysphagia and dehydration. History of breast cancer. Patient is a current smoker. Questionable mass on CT. ENT consulted to attempt direct visualization. CM to follow for needs, Plan: TBD Date Signed: 03/15/2018 12:47 PM Electronically Signed By:Stefania Hector RN [facility] CM Progress Note CM Note CM Note Notes: Patient plan of care reviewed in rounds. Per ENT no mass visualized per laryngoscope. GI to see for possible endoscopic views. Referral to [facility] her [facility] agency per [employer]scripts. Currently NPO per speech therapy. CM to follow for needs. Plan : Home with resumption of services when medically cleared for discharge. Date Signed: 03/16/2018 03:09 PM Electronically Signed By:Stefania Hector RN [facility] CM Progress Note CM Note CM Note Notes: Patient plan of care reviewed with MD. She has a severe stricture from her cancer. She is unable to swallow and does not wish to have a feeding tube, Hospice has been consulted. CM to assist family. Plan: TBD Date Signed: 03/17/2018 02:51 PM Electronically Signed By:Stefania Hector RN [facility] CM Progress Note CM Note CM Note Notes: Nona Scanlon in to see family and patient. Daughter has POA. Patient wishes to return home with support from hospice. They hope to have everything arranged by am. The would like to dc by 12 noon. CM availble to assist with needs. Plan: Dc home with hospice care. Date Signed: 03/17/2018 04:31 PM Electronically Signed By:Stefania Hector RN Case Management Discharge Plan Note Case Management Discharge Discharge Order Complete? Answers: Yes Patient to Obtain Answers: via Family Medications Transportation Arranged Answers: Family/Friends Agency/Facility Transfer Answers: Yes Report Printed & Faxed to Receiving Agency Family Notified Answers: Yes Discharge Comments Notes: Patient to discharge home with family and [facility] today. Date Signed: 03/18/2018 10:21 AM Electronically Signed By:Stefania Hector RN Intervention Information Intervention Type:*IM-Signed Date of Service:03/18/2018 10:09 AM Patient Type:Inpatient Staff Member:Kami Palumbo Hours: Discipline: Severity: Comment:
--- NOTE | 2018-03-18 18:19 | SOAPPROG ---
SOAP Progress Note Assessment/Plan: Assessment/Plan: Patient is an 88 year old female with history of metastatic breast cancer, ER/ME /HER2 negative, treated most recently with mediastinal radiation admitted for oropharyngeal dysphagia secondary to extrinsic compression from metastatic disease. #Oropharyngeal dysphagia secondary to extrinsic compression from cancer Could not be stented or traversed. Discussed g tube with treatment vs hospice care. Patient made it clear that she was not interested in a feeding tube or ongoing therapy for her cancer. She would like to go on hospice. Spent 30 mins with patient and family with >50% spent in counseling or coordination of care. 03/16/18 22:22 03/18/18 18:14 Subjective: patient had egd yesterday with identification of malignant extrinsic compression of esophagus. this stricture could not be traversed or stented. patient denies any pain. Objective: Vital Signs Temp Pulse Resp BP Pulse Ox 36.3 C 76 22 H 151/83 H 96 03/18/18 07:29 03/18/18 07:29 03/18/18 07:29 03/18/18 07:29 03/18/18 07:29 Laboratory Results 03/18/18 04:50 03/17/18 04:58 03/17/18 03/18/18 03/19/18 05:59 05:59 05:59 Intake Total 995 1158 Output Total 100 100 Balance 895 1058 physical exam deferred ICD10 Worksheet Patient Problems: Problems Problem Status Onset Constipation Acute Dehydration Acute Dysphagia Acute Failure to thrive in adult Acute
--- NOTE | 2018-03-20 07:12 | GDS ---
DISCHARGE DIAGNOSES: 1. Dysphagia secondary to esophageal compression from metastatic breast cancer tumor burden. 2. Metastatic breast cancer. 3. Atrial fibrillation. CONSULTATIONS: 1. Dr. Pepe Baez, ENT. 2. Dr. Randy Bashir, Gastroenterology. 3. Dr. Caitlin Plasencia, Oncology. PROCEDURES: 1. Left total laryngoscopy performed by ENT was unremarkable. 2. Upper endoscopy performed by Dr. Randy Bashir, Gastroenterology, revealed extrinsic narrowing of the esophagus consistent with external compression from lymphadenopathy and metastatic breast cancer tumor burden. There was food in the proximal esophagus that was removed. The esophageal stricture was not amenable to dilation or stenting. HISTORY: For details, please see history and physical dated March 15, 2018. In brief, the patient is an 88-year-old female with history of metastatic breast cancer, who presents to the emergency dep artment with inability to swallow and dysphagia. She is admitted to the hospital for further evaluat ion. HOSPITAL COURSE: The patient admitted to Med/Surg Cancer Care Unit. CT imaging raised suspicion for possible mass at the base of the tongue. ENT was consulted. She underwent laryngoscopy, which was unremarkable. GI was then consulted. She underwent upper endoscopy, which unfortunately revealed si gnificant esophageal narrowing due to external compression as described above. There were no endosco pic treatment options. Myself and Dr. Chris Cesar, Oncology, discussed with the patient and her fam vidal that her options included proceeding with a surgical PEG tube for tube feeds, as she would need t o remain n.p.o. as her esophageal narrowing was significant enough that she would no longer be able t o take food by mouth. There was an option for her to proceed with ongoing chemotherapy, though this was likely to only prolong her life by a matter of months at best. The patient made it very clear sh patel did not want to undergo any further procedures and did not want a feeding tube. Furthermore, she w as very adamant that she did not want any more chemotherapy. She ultimately opted for hospice with t he support of her family, who agreed with her decision. DISPOSITION: Patient is discharged home with hospice, in stable condition. DISCHARGE MEDICATIONS: Please see [employer] completed outpatient medication list. New medications on discharge include Roxanol 5-10 mg p.o. q.1 hour p.r.n. pain or air hunger. Further medications per [facility] team. /[id number]/MODL
== END 2018-03-18 11:45 | disposition hospice, home (50) | DRG 181 ==
LOC: F1N 14:41
PROVIDERS: ADMIT Internal Medicine; ATTEND Internal Medicine
PROC: 0DC38ZZ Extirpation of Matter from Lower Esophagus, Via Natural or Artificial Opening Endoscopic (ICD-10-PCS; principal; 2018-03-17 07:30)
DX: C78.1 Secondary malignant neoplasm of mediastinum (principal); C78.00 Secondary malignant neoplasm of unspecified lung; R13.12 Dysphagia, oropharyngeal phase; E86.0 Dehydration; I48.91 Unspecified atrial fibrillation; J44.9 Chronic obstructive pulmonary disease, unspecified; Z66 Do not resuscitate; Z85.3 Personal history of malignant neoplasm of breast; Z90.13 Acquired absence of bilateral breasts and nipples; Z72.0 Tobacco use
CPT/HCPCS: 92610-GN; 97116-GP; 97162-GP; 97166-GO; 97530-GP; 97535-GO; G8978-GP-CJ; G8979-GP-CI; G8987-GO-CJ; G8988-GO-CI; G8996-GN-CL; G8997-GN-CI; J1450; J1650; J2704; Q9967